=== PATIENT | female | born 1955 | race Caucasian/White ===

== ENCOUNTER 2019-06-14 02:08 | Emergency (ER) | payer SELFPAY ==
[2019-06-14] MEDS ORDERED: Ibuprofen TAB* 400 MG PO ONE (02:33)
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
[2019-06-14 05:16] LABS: ABS Basophils 0.1 10^3/ul (0-0.2); ABS Eosinophils 0.2 10^3/ul (0-0.6); ABS Lymphocytes 2.2 10^3/ul (1.0-4.8); ABS Monocytes 0.5 10^3/ul (0-0.8); ABS Neutrophils 4.7 10^3/ul (1.5-7.7); Eosinophil % 2.4 %; Hematocrit 41 % (35-47); Lymphocyte % 28.7 %; Mean Corpuscular HGB Conc 34 g/dL (31-36); Mean Corpuscular Hemoglobin 33 pg (27-31); Mean Corpuscular Volume 98 fL (80-97); Mean Platelet Volume 9.8 fL (7.4-10.4); Nucleated Red Blood Cells % 0.1; Platelet Count 238 10^3/uL (150-450); Red Cell Distribution Width 14 % (10-15); White Blood Count 7.6 10^3/uL (3.5-10.8)
[2019-06-14 05:35] LABS: Albumin 4.1 g/dL (3.2-5.2); Albumin/Globulin Ratio 1.8 (1-3); BUN/Creatinine Ratio 28.8 (8-20); Calcium 9.4 mg/dL (8.6-10.3); EGFR African American 124.6 (>60); EGFR Non-African American 102.9 (>60); Globulin 2.3 g/dL (2-4); Potassium 4.9 mmol/L (3.5-5.0); Total Bilirubin 0.3 mg/dL (0.2-1.0); Total Protein 6.4 g/dL (6.4-8.9)
[2019-06-14 08:41] VITALS: BP 151/77
== END 2019-06-14 08:00 | disposition home or self-care (01) ==
LOC: EDBD → ED 02:08
DX: S46.009A Unspecified injury of muscle(s) and tendon(s) of the rotator cuff of unspecified shoulder, initial encounter (principal); S16.1XXA Strain of muscle, fascia and tendon at neck level, initial encounter; T14.8XXA Other injury of unspecified body region, initial encounter; M54.2 Cervicalgia; W17.89XA Other fall from one level to another, initial encounter; Y92.9 Unspecified place or not applicable; F10.129 Alcohol abuse with intoxication, unspecified; Z88.0 Allergy status to penicillin; F17.210 Nicotine dependence, cigarettes, uncomplicated
CPT/HCPCS: 36415; 72125; 80053; 80320; 85025; 99283; A9270-GY; G0480

== ENCOUNTER 2019-09-13 11:25 | Emergency (ER) | payer MEDICAID ==
--- NOTE | 2019-09-13 13:02 | ED ---
Complex/Multi-Sys Presentation - HPI Summary HPI Summary: The patient is a 64 y/o F presenting to [facility] with chief complaint of pain in the RLE for the last year, back pain, tremors, and right-sided headaches over the last two weeks, all worsening over the last two days. She reports that the right ankle and into the knee has been painful and weak for the last year with recent worsening with cracking noises and tremors as well as intermittent swelling of the thigh. She has been experiencing tremors in the hands for the last few weeks as well worst on the right. She additionally has had headaches for the last two weeks located primarily posterior to the right eye described as trickling blood running down. The headaches are accompanied by photophobia , blurred vision, and flashing diamonds. She has not had these headaches before. She has used Ibuprofen to attempt to relieve the pain without relief. She endorses back pain and stiffness. Symptoms currently rated 10/10 in severity. She notes a lot of recent stress. PMHx: tubal ligation, dentures. Current smoker, occasional EtOH, no substance use. Medications reviewed. Allergies noted. - History Of Current Complaint Chief Complaint: EDExtremityLower Time Seen by Provider: 09/13/19 12:38 Hx Obtained From: Patient Onset/Duration: Still Present Severity Currently: Severe Severity Initially: Moderate Location: Pain At: - right ankle into knee, back Aggravating Factor(s): lights (headache) Alleviating Factor(s): nothing (Ibuprofen to no relief) Associated Signs And Symptoms: Positive: Headache, Edema - right thigh, Back Pain, Other - tremors in RLE and RUE, blurred vision, photophobia, flashing lights - Allergies/Home Medications Allergies/Adverse Reactions: Allergies Allergy/AdvReac Type Severity Reaction Status Date / Time codeine Allergy Anxiety Verified 06/14/19 02:12 Penicillins Allergy Rash Verified 06/14/19 02:12 PMH/Surg Hx/FS Hx/Imm Hx Endocrine/Hematology History: Denies: Hx Diabetes Cardiovascular History: Denies: Hx Deep Vein Thrombosis, Hx Hypotension Sensory History: Denies: Hx Contacts or Glasses Opthamlomology History: Denies: Hx Contacts or Glasses - Surgical History Surgical History: Yes Surgery Procedure, Year, and Place: tubal ligation, dentures Infectious Disease History: No Infectious Disease History: Denies: Traveled Outside the [place] in Last 30 Days - Family History Known Family History: Negative: Renal Disease, Respiratory Disease - Social History Alcohol Use: Occasionally Alcohol Amount: 3-4 times a wk 2-3 drinks a day Hx Substance Use: No Substance Use Type: Reports: None Hx Tobacco Use: Yes Smoking Status (MU): Current Every Day Smoker Review of Systems Positive: Photophobia, Blurred Vision - right eye, Other - flashing light in right eye Positive: Arthralgia - right ankle to knee, Myalgia - back, Edema - right thigh occasionally Neurological: Other - body tremors worst in RUE and RLE Positive: Headache - posterior to right eye, Weakness - RLE worst at ankle All Other Systems Reviewed And Are Negative: Yes Physical Exam - Summary Physical Exam Summary: Constitutional: Well-developed, Well-nourished, Alert. (-) Distressed Skin: Warm, Dry HENT: Normocephalic; Atraumatic Eyes: Conjunctiva normal Neck: Musculoskeletal ROM normal neck. (-) JVD, (-) Stridor, (-) Tracheal deviation Cardio: Rhythm regular, rate normal, Heart sounds normal; Intact distal pulses; Radial pulses are 2+ and symmetric. (-) Murmur Pulmonary/Chest wall: Effort normal. (-) Respiratory distress, (-) Wheezes, (-) Rales Abd: Soft, (-) tenderness, (-) Distension, (-) Guarding, (-) Rebound Musculoskeletal: (-) Edema, Patient refuses to bend right leg when walking Lymph: (-) Cervical adenopathy Neuro: Alert, Oriented x3, Coarse tremors of RUE and RLE Psych: Mood and affect Normal Triage Information Reviewed: Yes Vital Signs On Initial Exam: Initial Vitals Temp Pulse Resp BP Pulse Ox 98.3 F 87 16 134/81 96 09/13/19 11:27 09/13/19 11:27 09/13/19 11:27 09/13/19 11:27 09/13/19 11:27 Vital Signs Reviewed: Yes - Devante Coma Scale Best Eye Response: 4 - Spontaneous Best Motor Response: 6 - Obeys Commands Best Verbal Response: 5 - Oriented Coma Scale Total: 15 Procedures - Sedation Patient Received Moderate/Deep Sedation with Procedure: No Diagnostics - Vital Signs Vital Signs Temp Pulse Resp BP Pulse Ox 09/13/19 11:27 98.3 F 87 16 134/81 96 - Laboratory Result Diagrams: 09/13/19 13:34 09/13/19 13:34 Lab Statement: Any lab studies that have been ordered have been reviewed, and results considered in the medical decision making process. - CT Brain CT CT Interpretation Completed By: Radiologist Summary of CT Findings: Impression: No acute intracranial pathology. ED physician has reviewed this report. Re-Evaluation - Re-Evaluation First Eval Re-Evaluation Time: 14:35 Comment: We discussed results and plan for discharge. Complex Multi-Symp Course/Dx Course Of Treatment: Patient is here with one year of symptoms of varying etiology. Patient's had tremor in her right upper extremity gets worse with stress. Patient's had periodic headaches over the past couple of weeks. Patient also has pain in her knee and ankle. Patient is here today as she just got insurance again. Patient had a overall benign exam not concerned for any emergent pathology. However, given patient's lack of care and year-long symptomology, a CT brain was performed to evaluate for obvious mass which was negative. Patient had basic blood tests performed which were grossly unremarkable. Patient will follow up with her primary care doctor next week where she is going to establish care - Diagnoses Provider Diagnoses: Headache, Coarse tremors, Right knee pain Discharge ED - Sign-Out/Discharge Documenting (check all that apply): Patient Departure - Patient will be discharged home. - Discharge Plan Condition: Stable Disposition: HOME Prescriptions: Butalb/Acetamin/Caff TAB* [Fioricet TAB*] 1 tab PO Q8HR PRN #8 tab MDD 3 tablets PRN Reason: Headache Patient Education Materials: Acute Headache (DC), Knee Pain (ED), Tremors (ED) Referrals: [facility] [Outside] - 7 Days Albaro Kaba MD [Medical Doctor] - 3 Days Additional Instructions: Follow up with your primary care provider next week. Also follow up with neurology. Take headache medication as prescribed. Return to the emergency department for any new or worsening symptoms. - Billing Disposition and Condition Condition: STABLE Disposition: Home - Attestation Statements Document Initiated by Scribe: Yes Documenting Scribe: Madonna Concepcion Provider For Whom Lyubov is Documenting (Include Credential): MD Pascual Malaveibcaesar Attestation: Madonna Ray scribed for Dr. Barry De Leon MD on 09/13/19 at 1449. Scribe Documentation Reviewed: Yes Provider Attestation: The documentation as recorded by the pascualibe, Madonna Concepcion accurately reflects the service I personally performed and the decisions made by me, Dr. Barry De Leon MD Status of Scribe Document: Viewed
[2019-09-13] MEDS ORDERED: Butalb/Acetamin/Caff TAB* 1 TAB PO ONE (13:37)
[2019-09-13 13:44] LABS: ABS Basophils 0.1 10^3/ul (0-0.2); ABS Eosinophils 0.1 10^3/ul (0-0.6); ABS Lymphocytes 1.9 10^3/ul (1.0-4.8); ABS Monocytes 0.5 10^3/ul (0-0.8); ABS Neutrophils 5.9 10^3/ul (1.5-7.7); Eosinophil % 1.1 %; Hematocrit 42 % (35-47); Hemoglobin 14.4 g/dL (12.0-16.0); Mean Corpuscular HGB Conc 34 g/dL (31-36); Mean Corpuscular Hemoglobin 34 pg (27-31); Mean Corpuscular Volume 97 fL (80-97); Mean Platelet Volume 9.5 fL (7.4-10.4); Nucleated Red Blood Cells % 0.1; Platelet Count 226 10^3/uL (150-450); Red Blood Count 4.31 10^6 /uL (3.70-4.87); Red Cell Distribution Width 14 % (10-15); White Blood Count 8.5 10^3/uL (3.5-10.8)
[2019-09-13 14:00] LABS: Albumin 4.5 g/dL (3.2-5.2); Albumin/Globulin Ratio 1.7 (1-3); BUN/Creatinine Ratio 25.8 (8-20); Calcium 9.3 mg/dL (8.6-10.3); EGFR African American 109.1 (>60); EGFR Non-African American 90.2 (>60); Globulin 2.6 g/dL (2-4); Potassium 4.8 mmol/L (3.5-5.0); Total Bilirubin 0.7 mg/dL (0.2-1.0); Total Protein 7.1 g/dL (6.4-8.9)
[2019-09-13 14:29] LABS: TSH (Thyroid Stimulating Horm) 1.52 mcIU/mL (0.34-5.60)
[2019-09-13 15:21] VITALS: BP 150/70
== END 2019-09-13 15:10 | disposition home or self-care (01) ==
LOC: ED 11:25
DX: R51 Headache (principal); R25.1 Tremor, unspecified; M25.561 Pain in right knee; M54.9 Dorsalgia, unspecified; H53.8 Other visual disturbances; H53.149 Visual discomfort, unspecified; F17.210 Nicotine dependence, cigarettes, uncomplicated
CPT/HCPCS: 36415; 70450; 80053; 84443; 85025; 99282; A9270-GY

== ENCOUNTER 2021-06-17 05:38 | Observation (INO) ==
[2021-06-17] MEDS ORDERED: ceFAZolin 1 GM ADVAN 1 GM in NS 0.9% 50 ML 50 ML IVPB ONE (06:36)
[2021-06-17 07:06] LABS: ABS Basophils 0.1 10^3/ul (0-0.2); ABS Eosinophils 0.3 10^3/ul (0-0.6); ABS Lymphocytes 2.4 10^3/ul (1.0-4.8); ABS Monocytes 1.1 10^3/ul (0-0.8); ABS Neutrophils 5.7 10^3/ul (1.5-7.7); Hematocrit 39 % (35-47); Hemoglobin 13.6 g/dL (12.0-16.0); Lymphocyte % 24.9 %; Mean Corpuscular HGB Conc 35 g/dL (31-36); Mean Corpuscular Hemoglobin 35 pg (27-31); Mean Corpuscular Volume 99 fL (80-97); Mean Platelet Volume 8.8 fL (7.4-10.4); Platelet Count 286 10^3/uL (150-450); Red Cell Distribution Width 14 % (10-15); White Blood Count 9.6 10^3/uL (3.5-10.8)
[2021-06-17 07:24] LABS: Albumin 3.9 g/dL (3.2-5.2); Albumin/Globulin Ratio 1.5 (1-3); C Reactive Protein 1.39 mg/L (<8.01); Globulin 2.6 g/dL (2-4); Potassium 3.4 mmol/L (3.5-5.0); Total Bilirubin 0.4 mg/dL (0.2-1.0); Total Protein 6.5 g/dL (6.4-8.9)
[2021-06-17 09:52] LABS: Erythrocyte Sed Rate 3 mm/Hr (0-29)
[2021-06-17] MEDS ORDERED: Lidocaine 1% VIAL 10 MG/ML VIAL INJ ONE (10:12)
[2021-06-17] MEDS ORDERED: cefTRIAXone 1 gm/50 mL NS BAG 1 GM/50 ML BAG IV ONE ×2 (12:06→12:30)
[2021-06-17 13:05] LABS: Rapid COVID-19 Molecular Undetected (Undetected)
[2021-06-17] MEDS: HYDROcodone/ACETAMIN 5/325 mg TAB PO PRN ×2 (13:05→19:37)
[2021-06-17] MEDS: metroNIDAZOLE IV 500 MG/100ML 500 MG/100 ML BAG IVPB SCH ×2 (14:08→22:13)
[2021-06-17] MEDS ORDERED: Vancomycin 1,000 MG in NS 0.9% 250 ml 250 ML IVPB ONE (17:00)
[2021-06-17] MEDS ORDERED: Vancomycin per Pharmacy 1 EA NOTE FOLLOW UP PRN (18:15)
[2021-06-18] MEDS: metroNIDAZOLE IV 500 MG/100ML 500 MG/100 ML BAG IVPB SCH (05:15)
[2021-06-18] MEDS: Vancomycin 1000 MG in NS 0.9% 250 ML IVPB SCH ×2 (06:46→07:31)
[2021-06-18] MEDS: HYDROcodone/ACETAMIN 5/325 mg TAB PO PRN (07:31)
[2021-06-18 08:48] LABS: ABS Basophils 0.1 10^3/ul (0-0.2); ABS Eosinophils 0.2 10^3/ul (0-0.6); ABS Lymphocytes 1.8 10^3/ul (1.0-4.8); ABS Monocytes 0.7 10^3/ul (0-0.8); ABS Neutrophils 4.7 10^3/ul (1.5-7.7); Eosinophil % 3.1 %; Hematocrit 36 % (35-47); Hemoglobin 12.3 g/dL (12.0-16.0); Lymphocyte % 24.4 %; Mean Corpuscular HGB Conc 34 g/dL (31-36); Mean Corpuscular Hemoglobin 34 pg (27-31); Mean Corpuscular Volume 99 fL (80-97); Platelet Count 236 10^3/uL (150-450); Red Blood Count 3.65 10^6 /uL (3.70-4.87); Red Cell Distribution Width 13 % (10-15); White Blood Count 7.6 10^3/uL (3.5-10.8)
[2021-06-18 09:04] LABS: C Reactive Protein 3.08 mg/L (<8.01); Calcium 8.4 mg/dL (8.6-10.3); Potassium 3.6 mmol/L (3.5-5.0)
[2021-06-18] MEDS ORDERED: cefTRIAXone 1 gm/50 mL NS BAG 1 GM/50 ML BAG IVPB SCH (12:00)
[2021-06-18 12:17] VITALS: BP 132/52
[2021-06-19] MEDS ORDERED: Vancomycin Trough Check NOTE FOLLOW UP ONE (05:30)
== END 2021-06-18 13:20 | disposition home or self-care (01) ==
LOC: SSU 05:38 → ED 05:38 → SSU 12:42
PROVIDERS: ADMIT Internal Medicine; ATTEND Internal Medicine

== ENCOUNTER 2021-11-15 05:39 | Inpatient (IN) ==
[2021-11-15] MEDS ORDERED: Lactated Ringers 1000 ml BAG 1,000 ML IV SCH (06:00)
[2021-11-15] MEDS ORDERED: Buffered Lidocaine 1% SYRIN 1 ml INTRADERM ONE (06:00)
[2021-11-15] MEDS ORDERED: Vancomycin 1,000 MG - ED ONCE IVPB ONE (06:00)
[2021-11-15] MEDS ORDERED: ceFAZolin VIAL VIAL ONE ×3 (06:34→11:19)
[2021-11-15] MEDS ORDERED: Bupivacaine 0.25% EPI 200,000 30 ML SDV ONE (06:35)
[2021-11-15] MEDS ORDERED: Artificial Tear OPHTH.OINT 3.5 GM ONE (06:53)
[2021-11-15] MEDS ORDERED: Propofol 10 MG/ML 20 ML BTL ONE ×2 (06:54→10:38)
[2021-11-15] MEDS ORDERED: Phenylephrine IV 10 MG/ML 1 ml VIAL ONE (06:55)
[2021-11-15] MEDS ORDERED: fentaNYL 250 mcg/5 ml 50 MCG/ML 5 ml VIAL (250 MCG) ONE (06:55)
[2021-11-15] MEDS ORDERED: Lidocaine 2% PF 5 ML VIAL ONE (06:55)
[2021-11-15] MEDS ORDERED: HYDROmorphone 0.5 MG/0.5 ML SYRINGE ONE ×2 (06:55→12:46)
[2021-11-15] MEDS ORDERED: Remifentanil 2 MG VIAL ONE ×2 (06:55→10:28)
[2021-11-15] MEDS ORDERED: Succinylcholine 200 mg VIAL 20 mg/ml 10 ml VIAL (200 mg) ONE (07:06)
[2021-11-15] MEDS ORDERED: Rocuronium 50 mg VIAL 10 mg/ml 5 ml VIAL (50 mg) ONE (07:06)
[2021-11-15] MEDS ORDERED: Midazolam 2 mg/2 ml VIAL 1 mg/ml 2 ml VIAL (2 mg) ONE (07:42)
[2021-11-15] MEDS ORDERED: Prochlorperazine 5 mg/ml 2 ml VIAL (10 mg) IV PRN (07:48)
[2021-11-15] MEDS ORDERED: Naloxone 0.4 mg VIAL 0.4 mg/ml 1 ml VIAL IV PRN (07:48)
[2021-11-15] MEDS ORDERED: diPHENhydraMINE IV 50 MG/ML 1 ml VIAL (BENADRYL) IV PRN (07:48)
[2021-11-15] MEDS ORDERED: Ketamine HCL 50 mg/ml 10 ml VIAL (500 MG) ONE (08:33)
[2021-11-15] MEDS ORDERED: Glycopyrrolate IV 0.2 MG/ML 1 ML VIAL ONE (08:33)
[2021-11-15] MEDS ORDERED: Dexamethasone IV 4 MG/ML VIAL 1 ml VIAL ONE (08:42)
[2021-11-15] MEDS ORDERED: Ondansetron 4 mg VIAL 2 MG/ML 2 ml VIAL ONE ×2 (08:42→09:28)
[2021-11-15] MEDS ORDERED: Ondansetron 4 mg VIAL 2 MG/ML 2 ml VIAL IV PRN (12:29)
[2021-11-15] MEDS: HYDROmorphone 1 MG/1 ML SYRINGE IV PRN ×5 (13:30→13:50)
[2021-11-15] MEDS ORDERED: HYDROmorphone 1 MG/1 ML SYRINGE ONE (13:32)
[2021-11-15] MEDS ORDERED: [UNRECOGNIZED DRUG - OTHER] PO SCH (21:00)
[2021-11-17 21:29] LABS: ABS Lymphocytes 1.1 10^3/ul (1.0-4.8); ABS Monocytes 1.1 10^3/ul (0-0.8); ABS Neutrophils 8.2 10^3/ul (1.5-7.7); Eosinophil % 0.5 %; Hematocrit 33 % (35-47); Hemoglobin 11.2 g/dL (12.0-16.0); Lymphocyte % 10.8 %; Mean Corpuscular HGB Conc 34 g/dL (31-36); Mean Corpuscular Hemoglobin 34 pg (27-31); Mean Corpuscular Volume 100 fL (80-97); Mean Platelet Volume 9.1 fL (7.4-10.4); Platelet Count 182 10^3/uL (150-450); Red Blood Count 3.34 10^6 /uL (3.70-4.87); Red Cell Distribution Width 14 % (10-15); White Blood Count 10.6 10^3/uL (3.5-10.8)
[2021-11-17 21:59] LABS: C Reactive Protein 155.57 mg/L (<8.01); Calcium 8.9 mg/dL (8.6-10.3); Potassium 3.7 mmol/L (3.5-5.0); eGFR CKD-EPI 57.3 (>60)
[2021-11-18] MEDS: Morphine ORAL.SOLN 10 mg 2 mg/ml UDC 5 ml (10 mg) PO PRN (14:43)
[2021-11-19] MEDS: Morphine ORAL.SOLN 10 mg 2 mg/ml UDC 5 ml (10 mg) PO PRN ×3 (00:51→16:42)
[2021-11-19 07:14] LABS: ABS Eosinophils 0.2 10^3/ul (0-0.6); ABS Lymphocytes 1.5 10^3/ul (1.0-4.8); ABS Monocytes 0.8 10^3/ul (0-0.8); ABS Neutrophils 5.8 10^3/ul (1.5-7.7); Eosinophil % 2.1 %; Hematocrit 30 % (35-47); Hemoglobin 10.4 g/dL (12.0-16.0); Lymphocyte % 18.2 %; Mean Corpuscular HGB Conc 35 g/dL (31-36); Mean Corpuscular Hemoglobin 34 pg (27-31); Mean Corpuscular Volume 99 fL (80-97); Mean Platelet Volume 9.1 fL (7.4-10.4); Platelet Count 208 10^3/uL (150-450); Red Blood Count 3.04 10^6 /uL (3.70-4.87); Red Cell Distribution Width 14 % (10-15); White Blood Count 8.3 10^3/uL (3.5-10.8)
[2021-11-19 07:50] LABS: Potassium 3.5 mmol/L (3.5-5.0); eGFR CKD-EPI 100.6 (>60)
[2021-11-19 14:43] LABS: Albumin 2.9 g/dL (3.2-5.2); Albumin/Globulin Ratio 1.3 (1-3); C Reactive Protein 154.19 mg/L (<8.01); Globulin 2.2 g/dL (2-4); Total Bilirubin 0.7 mg/dL (0.2-1.0); Total Protein 5.1 g/dL (6.4-8.9)
[2021-11-19] MEDS: Heparin 5000 UNITS/ML 1 mL VIAL SUBCUT SCH (21:33)
[2021-11-19] MEDS: Senna TAB 8.6 mg TAB PO PRN (21:33)
[2021-11-20] MEDS: Morphine ORAL.SOLN 10 mg 2 mg/ml UDC 5 ml (10 mg) PO PRN ×5 (00:22→22:42)
[2021-11-20 05:40] LABS: ABS Eosinophils 0.3 10^3/ul (0-0.6); ABS Lymphocytes 1.4 10^3/ul (1.0-4.8); ABS Monocytes 0.9 10^3/ul (0-0.8); ABS Neutrophils 4.6 10^3/ul (1.5-7.7); Eosinophil % 3.7 %; Hematocrit 31 % (35-47); Hemoglobin 10.3 g/dL (12.0-16.0); Lymphocyte % 19.3 %; Mean Corpuscular HGB Conc 34 g/dL (31-36); Mean Corpuscular Hemoglobin 34 pg (27-31); Mean Corpuscular Volume 99 fL (80-97); Mean Platelet Volume 8.9 fL (7.4-10.4); Platelet Count 231 10^3/uL (150-450); Red Blood Count 3.07 10^6 /uL (3.70-4.87); Red Cell Distribution Width 14 % (10-15); White Blood Count 7.1 10^3/uL (3.5-10.8)
[2021-11-20 06:13] LABS: Potassium 3.6 mmol/L (3.5-5.0); eGFR CKD-EPI 99.7 (>60)
[2021-11-20] MEDS: Heparin 5000 UNITS/ML 1 mL VIAL SUBCUT SCH ×3 (06:43→20:21)
[2021-11-20] MEDS ORDERED: NS 0.9% 1000 ml BAG 1,000 ML IV ONE (08:42)
[2021-11-20 17:31] LABS: Urine Appearance Cloudy; Urine Bilirubin Negative (Negative); Urine Blood Negative (Negative); Urine Color Amber; Urine Glucose Negative (Negative); Urine Ketones Trace (Negative); Urine Nitrite Negative (Negative); Urine Protein Negative (Negative); Urine Specific Gravity 1.017 (1.002-1.030); Urine Urobilinogen Negative (Negative)
[2021-11-21] MEDS: Morphine ORAL.SOLN 10 mg 2 mg/ml UDC 5 ml (10 mg) PO PRN ×4 (03:36→20:44)
[2021-11-21] MEDS: Heparin 5000 UNITS/ML 1 mL VIAL SUBCUT SCH ×3 (06:13→20:44)
[2021-11-21] MEDS: Polyethylene Glycol 3350 17 GM PACKET PO SCH (10:21)
[2021-11-22] MEDS: Morphine ORAL.SOLN 10 mg 2 mg/ml UDC 5 ml (10 mg) PO PRN ×3 (03:44→18:57)
[2021-11-22] MEDS: Heparin 5000 UNITS/ML 1 mL VIAL SUBCUT SCH ×3 (05:13→22:11)
[2021-11-22] MEDS: Polyethylene Glycol 3350 17 GM PACKET PO SCH (09:45)
[2021-11-22] MEDS: Psyllium PAK PO SCH (09:46)
[2021-11-23] MEDS: Morphine ORAL.SOLN 10 mg 2 mg/ml UDC 5 ml (10 mg) PO PRN ×4 (00:25→22:15)
[2021-11-23] MEDS: Heparin 5000 UNITS/ML 1 mL VIAL SUBCUT SCH ×3 (05:53→21:53)
[2021-11-23] MEDS: Magnesium Hydroxide LIQ 30 ML UDC PO PRN ×2 (07:59→21:53)
[2021-11-23] MEDS: Senna TAB 8.6 mg TAB PO PRN (08:01)
[2021-11-23] MEDS: Polyethylene Glycol 3350 17 GM PACKET PO SCH (08:01)
[2021-11-23] MEDS: Psyllium PAK PO SCH (08:02)
[2021-11-24] MEDS: Heparin 5000 UNITS/ML 1 mL VIAL SUBCUT SCH ×2 (05:22→13:08)
[2021-11-24] MEDS: Morphine ORAL.SOLN 10 mg 2 mg/ml UDC 5 ml (10 mg) PO PRN ×2 (09:31→13:29)
[2021-11-24] MEDS: Psyllium PAK PO SCH (09:31)
[2021-11-24] MEDS: Polyethylene Glycol 3350 17 GM PACKET PO SCH (09:31)
[2021-11-24 11:30] VITALS: BP 126/35
== END 2021-11-24 16:30 | disposition home health service (06) | DRG 472 ==
LOC: OR 05:39 → SSU 12:29
PROVIDERS: ADMIT Neurological Surgery; ATTEND Neurological Surgery

== ENCOUNTER 2021-11-30 15:32 | Inpatient (IN) ==
[2021-11-30 17:13] LABS: ABS Basophils 0.1 10^3/ul (0-0.2); ABS Eosinophils 0.2 10^3/ul (0-0.6); ABS Lymphocytes 1.5 10^3/ul (1.0-4.8); ABS Monocytes 1.2 10^3/ul (0-0.8); ABS Neutrophils 9.7 10^3/ul (1.5-7.7); Eosinophil % 1.7 %; Hematocrit 32 % (35-47); Hemoglobin 10.5 g/dL (12.0-16.0); Lymphocyte % 11.7 %; Mean Corpuscular HGB Conc 33 g/dL (31-36); Mean Corpuscular Hemoglobin 32 pg (27-31); Mean Corpuscular Volume 98 fL (80-97); Platelet Count 495 10^3/uL (150-450); Red Blood Count 3.25 10^6 /uL (3.70-4.87); Red Cell Distribution Width 14 % (10-15); White Blood Count 12.7 10^3/uL (3.5-10.8)
[2021-11-30] MEDS ORDERED: Clindamycin 900 MG/D5W BAG 900 MG/50 ML BAG IVPB ONE (17:35)
[2021-11-30] MEDS ORDERED: Vancomycin 1,500 MG in NS 0.9% 250 ml 250 ML IVPB ONE (17:36)
[2021-11-30] MEDS ORDERED: Cefepime 1 GM in Dextrose 1 GM/50 ML BAG IV SCH (18:00)
[2021-11-30 18:03] LABS: Albumin 3.5 g/dL (3.2-5.2); Albumin/Globulin Ratio 1.1 (1-3); C Reactive Protein 130.42 mg/L (<8.01); Globulin 3.1 g/dL (2-4); Potassium 4.6 mmol/L (3.5-5.0); Total Bilirubin 0.6 mg/dL (0.2-1.0); Total Protein 6.6 g/dL (6.4-8.9); eGFR CKD-EPI 26.1 (>60)
[2021-11-30 18:16] LABS: INR 1.23 (0.86-1.15)
[2021-11-30] MEDS ORDERED: Morphine 4 MG/ML VIAL (1 ml) IV PRN (20:17)
[2021-11-30] MEDS ORDERED: Vancomycin 1,000 MG - ED ONCE IVPB ONE (21:00)
[2021-11-30] MEDS ORDERED: Vancomycin per Pharmacy 1 EA NOTE FOLLOW UP SCH (21:00)
[2021-11-30] MEDS ORDERED: Lactated Ringers 1000 ml BAG 1,000 ML IV SCH (23:45)
[2021-12-01] MEDS: Acetaminophen IV 1 GM/100ML 100 ML IV SCH ×4 (04:15→23:11)
[2021-12-01 06:01] LABS: ABS Eosinophils 0.2 10^3/ul (0-0.6); ABS Lymphocytes 1.3 10^3/ul (1.0-4.8); ABS Monocytes 1.1 10^3/ul (0-0.8); ABS Neutrophils 7.1 10^3/ul (1.5-7.7); Eosinophil % 1.8 %; Hematocrit 28 % (35-47); Hemoglobin 9.6 g/dL (12.0-16.0); Lymphocyte % 13.1 %; Mean Corpuscular HGB Conc 34 g/dL (31-36); Mean Corpuscular Hemoglobin 33 pg (27-31); Mean Corpuscular Volume 97 fL (80-97); Mean Platelet Volume 9.2 fL (7.4-10.4); Platelet Count 458 10^3/uL (150-450); Red Blood Count 2.92 10^6 /uL (3.70-4.87); Red Cell Distribution Width 14 % (10-15); White Blood Count 9.6 10^3/uL (3.5-10.8)
[2021-12-01 06:21] LABS: Urine Appearance Cloudy; Urine Bilirubin Negative (Negative); Urine Blood 2+ (Negative); Urine Color Yellow; Urine Glucose Negative (Negative); Urine Ketones Trace (Negative); Urine Nitrite Negative (Negative); Urine Protein Negative (Negative); Urine Specific Gravity 1.014 (1.002-1.030); Urine Urobilinogen Negative (Negative)
[2021-12-01 06:39] LABS: Calcium 9.3 mg/dL (8.6-10.3); Potassium 4.4 mmol/L (3.5-5.0); eGFR CKD-EPI 40.1 (>60)
[2021-12-01 06:50] LABS: Urine Bacteria Absent (Absent); Urine Red Blood Cell Trace(0-2/hpf) (Absent); Urine Squamous Epithelial Cell Present (Absent); Urine White Blood Cell 1+(6-10/hpf) (Absent)
[2021-12-01 07:03] LABS: Folate 11.57 ng/mL (5.90-24.80)
[2021-12-01] MEDS ORDERED: Buffered Lidocaine 1% SYRIN 1 ml INTRADERM ONE (09:57)
[2021-12-01] MEDS ORDERED: Lactated Ringers 1000 ml BAG 1,000 ML IV SCH (10:00)
[2021-12-01 10:48] LABS: Vancomycin Random 14.7 mcg/mL
[2021-12-01] MEDS ORDERED: Vancomycin Random Level NOTE FOLLOW UP ONE (11:00)
[2021-12-01] MEDS ORDERED: Lidocaine 1.5% EPI 1:200,000 30 ML SDV ONE (11:52)
[2021-12-01] MEDS ORDERED: Thrombin 5,000 UNITS 1 APPLIC KIT - topical use - TOPICAL ONE (11:52)
[2021-12-01] MEDS ORDERED: ceFAZolin VIAL VIAL ONE (12:09)
[2021-12-01] MEDS ORDERED: Vancomycin 1,000 MG - ED ONCE IVPB ONE (13:00)
[2021-12-01] MEDS ORDERED: Lidocaine 2% PF 5 ML VIAL ONE (13:15)
[2021-12-01] MEDS ORDERED: Propofol 10 MG/ML 20 ML BTL ONE (13:15)
[2021-12-01] MEDS ORDERED: Rocuronium 50 mg VIAL 10 mg/ml 5 ml VIAL (50 mg) ONE ×2 (13:15→14:44)
[2021-12-01] MEDS ORDERED: Phenylephrine 40 mcg/mL 10mL (400mcg) SYRINGE ONE (13:51)
[2021-12-01] MEDS ORDERED: fentaNYL 100 mcg/2 ml 50 MCG/ML VIAL ONE ×4 (14:06→16:46)
[2021-12-01] MEDS ORDERED: Acetaminophen IV 1 GM/100ML 100 ML IV ONE (14:24)
[2021-12-01] MEDS ORDERED: EPHEDrine (Pressors) 50 MG/ML VIAL ONE (14:41)
[2021-12-01] MEDS ORDERED: Vancomycin 1,000 MG VIAL ONE (14:44)
[2021-12-01] MEDS ORDERED: Phenylephrine IV 10 MG/ML 1 ml VIAL ONE (14:50)
[2021-12-01] MEDS ORDERED: fentaNYL 100 mcg/2 ml 50 MCG/ML VIAL IV PRN (16:08)
[2021-12-01] MEDS ORDERED: Naloxone 0.4 mg VIAL 0.4 mg/ml 1 ml VIAL IV PRN (16:08)
[2021-12-01] MEDS ORDERED: Ondansetron 4 mg VIAL 2 MG/ML 2 ml VIAL IV PRN ×2 (16:08→17:35)
[2021-12-01] MEDS ORDERED: Levalbuterol 0.63MG/3ML NEB UNIT OF USE INH PRN (16:08)
[2021-12-01] MEDS ORDERED: Ondansetron 4 mg VIAL 2 MG/ML 2 ml VIAL ONE (16:46)
[2021-12-01] MEDS ORDERED: Vancomycin 1000 MG in NS 0.9% 250 ML IVPB ONE (18:00)
[2021-12-01] MEDS ORDERED: cefTRIAXone 1 gm/50 mL NS BAG 1 GM/50 ML BAG IVPB SCH (21:00)
[2021-12-02] MEDS: Acetaminophen IV 1 GM/100ML 100 ML IV SCH ×3 (04:25→16:58)
[2021-12-02 05:49] LABS: ABS Eosinophils 0.2 10^3/ul (0-0.6); ABS Lymphocytes 1.3 10^3/ul (1.0-4.8); ABS Neutrophils 6.9 10^3/ul (1.5-7.7); Eosinophil % 1.8 %; Hematocrit 24 % (35-47); Hemoglobin 8.1 g/dL (12.0-16.0); Lymphocyte % 13.6 %; Mean Corpuscular HGB Conc 34 g/dL (31-36); Mean Corpuscular Hemoglobin 33 pg (27-31); Mean Corpuscular Volume 97 fL (80-97); Platelet Count 461 10^3/uL (150-450); Red Cell Distribution Width 13 % (10-15); White Blood Count 9.4 10^3/uL (3.5-10.8)
[2021-12-02] MEDS ORDERED: Vancomycin Random Level NOTE FOLLOW UP ONE (06:00)
[2021-12-02 06:14] LABS: Calcium 8.9 mg/dL (8.6-10.3); Magnesium 1.5 mg/dL (1.9-2.7); Potassium 4.4 mmol/L (3.5-5.0); Vancomycin Random 10.2 mcg/mL; eGFR CKD-EPI 74.5 (>60)
[2021-12-02] MEDS ORDERED: Senna TAB 8.6 mg TAB PO PRN (06:39)
[2021-12-02] MEDS ORDERED: Magnesium Sulfate 2 gm BAG 2 GM/50 ML BAG IVPB ONE (06:45)
[2021-12-02] MEDS: Magnesium Hydroxide LIQ 30 ML UDC PO PRN ×2 (08:33→16:08)
[2021-12-02] MEDS: Vancomycin 750 MG in NS 0.9% 250 ML IVPB SCH (11:42)
[2021-12-02] MEDS ORDERED: cefTRIAXone 1 gm/50 mL D5W 1 GM/50 ML BAG IV SCH (21:00)
[2021-12-02] MEDS ORDERED: Nicotine Lozenge mini 2 MG LOZNG.MINI MT PRN (21:03)
[2021-12-03] MEDS: Vancomycin 750 MG in NS 0.9% 250 ML IVPB SCH ×3 (00:45→23:03)
[2021-12-03] MEDS: Acetaminophen IV 1 GM/100ML 100 ML IV SCH ×5 (01:15→21:59)
[2021-12-03 05:42] LABS: ABS Eosinophils 0.1 10^3/ul (0-0.6); ABS Lymphocytes 1.2 10^3/ul (1.0-4.8); ABS Monocytes 0.9 10^3/ul (0-0.8); ABS Neutrophils 9.3 10^3/ul (1.5-7.7); Eosinophil % 0.9 %; Hematocrit 26 % (35-47); Hemoglobin 8.7 g/dL (12.0-16.0); Lymphocyte % 10.4 %; Mean Corpuscular HGB Conc 34 g/dL (31-36); Mean Corpuscular Hemoglobin 33 pg (27-31); Mean Corpuscular Volume 96 fL (80-97); Mean Platelet Volume 8.9 fL (7.4-10.4); Platelet Count 496 10^3/uL (150-450); Red Blood Count 2.69 10^6 /uL (3.70-4.87); Red Cell Distribution Width 13 % (10-15); White Blood Count 11.5 10^3/uL (3.5-10.8)
[2021-12-03 06:20] LABS: Calcium 9.1 mg/dL (8.6-10.3); Potassium 4.3 mmol/L (3.5-5.0); eGFR CKD-EPI 95.7 (>60)
[2021-12-03] MEDS: Nicotine PATCH 14 MG/24 HR PATCH TRANSDERM SCH (09:46)
[2021-12-03] MEDS ORDERED: Lorazepam PYXIS KEY PRN (15:27)
[2021-12-03] MEDS: Enoxaparin 40 MG/0.4 ML SYR SUBCUT SCH (17:31)
[2021-12-04] MEDS: LORazepam 2 mg VIAL 1 ml IV PUSH PRN ×2 (03:36→09:02)
[2021-12-04] MEDS: Acetaminophen IV 1 GM/100ML 100 ML IV SCH ×5 (03:41→23:15)
[2021-12-04 05:43] LABS: ABS Basophils 0.1 10^3/ul (0-0.2); ABS Eosinophils 0.2 10^3/ul (0-0.6); ABS Neutrophils 7.2 10^3/ul (1.5-7.7); Eosinophil % 1.9 %; Hematocrit 27 % (35-47); Hemoglobin 9.3 g/dL (12.0-16.0); Mean Corpuscular HGB Conc 34 g/dL (31-36); Mean Corpuscular Hemoglobin 33 pg (27-31); Mean Corpuscular Volume 96 fL (80-97); Mean Platelet Volume 9.1 fL (7.4-10.4); Platelet Count 584 10^3/uL (150-450); Red Blood Count 2.83 10^6 /uL (3.70-4.87); Red Cell Distribution Width 14 % (10-15); White Blood Count 10.5 10^3/uL (3.5-10.8)
[2021-12-04 06:11] LABS: Calcium 9.5 mg/dL (8.6-10.3); Magnesium 1.6 mg/dL (1.9-2.7); Potassium 3.6 mmol/L (3.5-5.0); eGFR CKD-EPI 96.7 (>60)
[2021-12-04] MEDS ORDERED: Magnesium Sulf 4 GM/100 ML IV 4,000 MG/100 ML BAG IVPB ONE (08:10)
[2021-12-04] MEDS: Nicotine PATCH 14 MG/24 HR PATCH TRANSDERM SCH (08:46)
[2021-12-04] MEDS ORDERED: Vancomycin Trough Check NOTE FOLLOW UP ONE (10:30)
[2021-12-04] MEDS: Vancomycin 750 MG in NS 0.9% 250 ML IVPB SCH ×2 (11:28→23:15)
[2021-12-04] MEDS: Enoxaparin 40 MG/0.4 ML SYR SUBCUT SCH (17:25)
[2021-12-05] MEDS: LORazepam 2 mg VIAL 1 ml IV PUSH PRN (01:10)
[2021-12-05] MEDS: Acetaminophen IV 1 GM/100ML 100 ML IV SCH ×4 (03:45→22:18)
[2021-12-05 08:05] LABS: Calcium 8.9 mg/dL (8.6-10.3); Magnesium 1.8 mg/dL (1.9-2.7); Potassium 3.4 mmol/L (3.5-5.0); eGFR CKD-EPI 96.3 (>60)
[2021-12-05] MEDS: Nicotine PATCH 14 MG/24 HR PATCH TRANSDERM SCH (08:21)
[2021-12-05] MEDS ORDERED: Potassium Chlor 20 meq TAB.ER PO ONE (09:31)
[2021-12-05] MEDS: Vancomycin 750 MG in NS 0.9% 250 ML IVPB SCH ×2 (10:28→22:51)
[2021-12-05] MEDS: Enoxaparin 40 MG/0.4 ML SYR SUBCUT SCH (17:31)
[2021-12-06] MEDS: Acetaminophen IV 1 GM/100ML 100 ML IV SCH ×4 (04:29→23:42)
[2021-12-06 07:41] LABS: Calcium 8.7 mg/dL (8.6-10.3); Magnesium 1.6 mg/dL (1.9-2.7); Potassium 3.9 mmol/L (3.5-5.0)
[2021-12-06 07:46] LABS: eGFR CKD-EPI 90.6 (>60)
[2021-12-06] MEDS ORDERED: Magnesium Sulfate 2 gm BAG 2 GM/50 ML BAG IVPB ONE (08:12)
[2021-12-06] MEDS: Nicotine PATCH 14 MG/24 HR PATCH TRANSDERM SCH (09:51)
[2021-12-06] MEDS: Magnesium Hydroxide LIQ 30 ML UDC PO PRN (09:52)
[2021-12-06] MEDS: Vancomycin 750 MG in NS 0.9% 250 ML IVPB SCH (11:30)
[2021-12-06] MEDS: Enoxaparin 40 MG/0.4 ML SYR SUBCUT SCH (17:18)
[2021-12-07] MEDS: Vancomycin 750 MG in NS 0.9% 250 ML IVPB SCH ×2 (00:26→10:22)
[2021-12-07] MEDS: Acetaminophen IV 1 GM/100ML 100 ML IV SCH ×2 (05:46→10:23)
[2021-12-07] MEDS: Nicotine PATCH 14 MG/24 HR PATCH TRANSDERM SCH (10:22)
[2021-12-07 10:58] LABS: Rapid COVID-19 Molecular Undetected (Undetected)
[2021-12-07 11:50] VITALS: BP 131/59
== END 2021-12-07 13:50 | DRG 857 ==
LOC: ED 15:32 → EDHOLD 20:09 → SUATTDRO 20:09 → SSU 22:25
PROVIDERS: ADMIT Internal Medicine; ATTEND Student in an Organized Health Care Education/Training Program

== ENCOUNTER 2024-06-07 03:44 | Inpatient (IN) ==
[2024-06-07] MEDS: Ondansetron 4 mg VIAL 2 MG/ML 2 ml VIAL IV ONE (06:34)
[2024-06-07] MEDS: Lactated Ringers 1000 ml BAG 1,000 ML IV ONE ×2 (06:34→07:31)
[2024-06-07 06:42] LABS: ABS Basophils 0.1 10^3/uL (0.0-0.1); ABS Eosinophils 0.4 10^3/uL (0.0-0.5); ABS Monocytes 0.9 10^3/uL (0.0-0.9); ABS Neutrophils 5.1 10^3/uL (1.5-7.6); ABS Nucleated RBC 0.01 10^3/ul; Hematocrit 37.2 % (35-45); Hemoglobin 12.7 g/dL (11.5-14.3); Lymphocyte % 31.9 %; Mean Corpuscular Hemoglobin 31.9 pg (27-33); Mean Corpuscular Hgb Conc 34.3 g/dL (31-36); Mean Corpuscular Volume 92.9 fL (80-97); Mean Platelet Volume 10.1 fL (7.5-11.2); Nucleated Red Blood Cells % 0.1 %/100WBC (0.0-0.8); Platelet Count 248 10^3/uL (150-450); Red Cell Distribution Width 13.9 % (12-17); White Blood Count 9.5 10^3/uL (3.8-11.8)
[2024-06-07 06:50] LABS: Albumin 4.3 g/dL (3.2-5.2); Albumin/Globulin Ratio 1.6 (1-3); C Reactive Protein 72.68 mg/L (<8.01); Calcium 10.5 mg/dL (8.6-10.3); Creatinine, Serum 1.08 mg/dL (0.51-0.95); Globulin 2.7 g/dL (2-4); Magnesium 1.6 mg/dL (1.9-2.7); Potassium 3.8 mmol/L (3.5-5.0); Total Bilirubin 0.3 mg/dL (0.2-1.0)
[2024-06-07 06:57] LABS: Activated Partial Thrombo Time 31.9 seconds (26.0-38.0); INR 0.93 (0.85-1.14)
[2024-06-07] MEDS: Magnesium Sulfate 2 gm BAG 2 GM/50 ML BAG IVPB ONE (07:38)
[2024-06-07] MEDS: Iodixanol (CONTRAST) 320 MG/ML 100 ML SDV IV ONE (09:23)
[2024-06-07 09:51] LABS: Urine Appearance Clear; Urine Bilirubin Negative (Negative); Urine Blood Negative (Negative); Urine Color Light-Yellow; Urine Glucose Negative (Negative); Urine Ketones Negative (Negative); Urine Nitrite Negative (Negative); Urine Protein Negative (Negative); Urine Specific Gravity 1.026 (1.002-1.030); Urine Urobilinogen Negative (Negative)
[2024-06-07] MEDS: metroNIDAZOLE IV 500 MG/100ML 500 MG/100 ML BAG IVPB ONE (10:18)
[2024-06-07] MEDS: Ciprofloxacin 400mg IVPREMIX 400 MG/200 ML BAG IVPB ONE (11:41)
[2024-06-07] MEDS: Morphine 2 MG/ML SYRINGE IV ONE (17:10)
[2024-06-07 18:21] LABS: ALT 10 U/L (7-52); Albumin 3.4 g/dL (3.2-5.2); Albumin/Globulin Ratio 1.7 (1-3); Alkaline Phosphatase 65 U/L (35-149); Blood Urea Nitrogen 24 mg/dL (6-24); CO2 Carbon Dioxide 25 mmol/L (22-32); Calcium 8.7 mg/dL (8.6-10.3); Chloride 107 mmol/L (101-111); Creatinine, Serum 0.82 mg/dL (0.51-0.95); Glucose 96 mg/dL (70-100); Lipase 57 U/L (11.0-82.0); Sodium 141 mmol/L (135-145); Total Bilirubin 0.3 mg/dL (0.2-1.0); Total Protein 5.4 g/dL (6.4-8.9); eGFR CKD-EPI 77.9 (>60)
[2024-06-07 18:22] LABS: Anion Gap 9 mmol/L (2-16)
[2024-06-07] MEDS: Morphine 4 MG/ML VIAL (1 ml) IV ONE (19:56)
[2024-06-07] MEDS ORDERED: Lorazepam PYXIS KEY PRN (22:03)
[2024-06-07] MEDS: LORazepam 2 mg VIAL 1 ml IV PUSH ONE (22:13)
[2024-06-08] MEDS: Acetaminophen IV 1 GM/100ML 1,000 MG/100 ML BAG IV SCH (05:50)
[2024-06-08] MEDS: Lactated Ringers 1000 ml BAG 1,000 ML IV SCH (06:18)
[2024-06-08] MEDS: Morphine 4 MG/ML VIAL (1 ml) IV PRN (06:29)
[2024-06-08 08:24] LABS: ABS Eosinophils 0.3 10^3/uL (0.0-0.5); ABS Lymphocytes 1.3 10^3/uL (1.0-4.8); ABS Monocytes 0.6 10^3/uL (0.0-0.9); ABS Neutrophils 3.4 10^3/uL (1.5-7.6); Eosinophil % 5.4 %; Hemoglobin 10.5 g/dL (11.5-14.3); Mean Corpuscular Hgb Conc 32.8 g/dL (31-36); Mean Corpuscular Volume 94.4 fL (80-97); Mean Platelet Volume 10.2 fL (7.5-11.2); Nucleated Red Blood Cells % 0.1 %/100WBC (0.0-0.8); Platelet Count 194 10^3/uL (150-450); Red Blood Count 3.39 10^6/uL (3.63-4.92); Red Cell Distribution Width 14.3 % (12-17); White Blood Count 5.7 10^3/uL (3.8-11.8)
[2024-06-08] MEDS: cefTRIAXone 1 gm/50 mL D5W 1 GM/50 ML BAG IV SCH (08:37)
[2024-06-08 08:39] LABS: Albumin 3.5 g/dL (3.2-5.2); Albumin/Globulin Ratio 1.8 (1-3); Calcium 8.7 mg/dL (8.6-10.3); Creatinine, Serum 0.79 mg/dL (0.51-0.95); Globulin 1.9 g/dL (2-4); Magnesium 1.6 mg/dL (1.9-2.7); Potassium 4.2 mmol/L (3.5-5.0); Total Bilirubin 0.4 mg/dL (0.2-1.0); Total Protein 5.4 g/dL (6.4-8.9); eGFR CKD-EPI 81.4 (>60)
[2024-06-08] MEDS ORDERED: DULoxetine DR 60 mg CAP PO SCH (09:00)
[2024-06-08] MEDS: metroNIDAZOLE IV 500 MG/100ML 500 MG/100 ML BAG IVPB SCH (09:40)
[2024-06-08] MEDS: Magnesium Sulf 4 GM/100 ML IV 4,000 MG/100 ML BAG IVPB ONE (10:35)
[2024-06-09] MEDS: cefTRIAXone 1 gm/50 mL D5W 1 GM/50 ML BAG IV SCH (05:30)
[2024-06-09] MEDS: metroNIDAZOLE IV 500 MG/100ML 500 MG/100 ML BAG IVPB SCH (06:16)
[2024-06-09 07:17] LABS: ABS Eosinophils 0.3 10^3/uL (0.0-0.5); ABS Lymphocytes 1.3 10^3/uL (1.0-4.8); ABS Monocytes 0.5 10^3/uL (0.0-0.9); ABS Neutrophils 3.8 10^3/uL (1.5-7.6); Eosinophil % 5.1 %; Hematocrit 31.5 % (35-45); Hemoglobin 10.6 g/dL (11.5-14.3); Lymphocyte % 22.5 %; Mean Corpuscular Hgb Conc 33.6 g/dL (31-36); Mean Corpuscular Volume 95.2 fL (80-97); Mean Platelet Volume 10.4 fL (7.5-11.2); Platelet Count 194 10^3/uL (150-450); Red Blood Count 3.31 10^6/uL (3.63-4.92)
[2024-06-09 07:37] LABS: Albumin 3.4 g/dL (3.2-5.2); Albumin/Globulin Ratio 1.8 (1-3); Calcium 8.4 mg/dL (8.6-10.3); Creatinine, Serum 0.77 mg/dL (0.51-0.95); Direct Bilirubin 0.1 mg/dL (0.03-0.18); Globulin 1.9 g/dL (2-4); Indirect Bilirubin 0.2 mg/dL (0.3-1.0); Magnesium 1.9 mg/dL (1.9-2.7); Total Bilirubin 0.3 mg/dL (0.2-1.0); Total Protein 5.3 g/dL (6.4-8.9)
[2024-06-09] MEDS: Ondansetron 4 mg VIAL 2 MG/ML 2 ml VIAL IV PRN (09:14)
[2024-06-09 16:53] LABS: Albumin 3.7 g/dL (3.2-5.2); Albumin/Globulin Ratio 1.9 (1-3); Indirect Bilirubin 0.3 mg/dL (0.3-1.0); Total Bilirubin 0.3 mg/dL (0.2-1.0); Total Protein 5.7 g/dL (6.4-8.9)
[2024-06-09 21:04] LABS: ABS Basophils 0.1 10^3/uL (0.0-0.1); ABS Eosinophils 0.3 10^3/uL (0.0-0.5); ABS Lymphocytes 1.5 10^3/uL (1.0-4.8); ABS Monocytes 0.5 10^3/uL (0.0-0.9); ABS Neutrophils 4.4 10^3/uL (1.5-7.6); Eosinophil % 4.4 %; Hematocrit 31.1 % (35-45); Hemoglobin 10.2 g/dL (11.5-14.3); Lymphocyte % 22.3 %; Mean Corpuscular Hemoglobin 31.2 pg (27-33); Mean Corpuscular Hgb Conc 32.9 g/dL (31-36); Mean Corpuscular Volume 94.8 fL (80-97); Mean Platelet Volume 9.9 fL (7.5-11.2); Platelet Count 214 10^3/uL (150-450); Red Blood Count 3.28 10^6/uL (3.63-4.92); White Blood Count 6.8 10^3/uL (3.8-11.8)
[2024-06-09 21:58] LABS: Albumin 3.5 g/dL (3.2-5.2); Albumin/Globulin Ratio 1.8 (1-3); C Reactive Protein 18.05 mg/L (<8.01); Calcium 8.8 mg/dL (8.6-10.3); Creatinine, Serum 1.07 mg/dL (0.51-0.95); Globulin 1.9 g/dL (2-4); Potassium 4.4 mmol/L (3.5-5.0); Total Bilirubin 0.2 mg/dL (0.2-1.0); Total Protein 5.4 g/dL (6.4-8.9); eGFR CKD-EPI 56.6 (>60)
[2024-06-10] MEDS: Magnesium Hydroxide LIQ 30 ML UDC PO PRN (06:27)
[2024-06-10 06:49] LABS: ABS Basophils 0.1 10^3/uL (0.0-0.1); ABS Eosinophils 0.3 10^3/uL (0.0-0.5); ABS Lymphocytes 1.3 10^3/uL (1.0-4.8); ABS Monocytes 0.7 10^3/uL (0.0-0.9); ABS Neutrophils 6.6 10^3/uL (1.5-7.6); Eosinophil % 3.6 %; Hematocrit 30.3 % (35-45); Hemoglobin 9.9 g/dL (11.5-14.3); Lymphocyte % 14.5 %; Mean Corpuscular Hemoglobin 31.1 pg (27-33); Mean Corpuscular Hgb Conc 32.7 g/dL (31-36); Mean Corpuscular Volume 95.1 fL (80-97); Mean Platelet Volume 10.3 fL (7.5-11.2); Platelet Count 209 10^3/uL (150-450); Red Blood Count 3.19 10^6/uL (3.63-4.92); Red Cell Distribution Width 13.8 % (12-17)
[2024-06-10 07:05] LABS: Albumin 3.3 g/dL (3.2-5.2); Albumin/Globulin Ratio 1.7 (1-3); Calcium 8.4 mg/dL (8.6-10.3); Creatinine, Serum 0.86 mg/dL (0.51-0.95); Globulin 1.9 g/dL (2-4); Indirect Bilirubin 0.2 mg/dL (0.3-1.0); Magnesium 1.4 mg/dL (1.9-2.7); Potassium 4.4 mmol/L (3.5-5.0); Total Bilirubin 0.2 mg/dL (0.2-1.0); Total Protein 5.2 g/dL (6.4-8.9); eGFR CKD-EPI 73.5 (>60)
[2024-06-11 05:47] LABS: ABS Eosinophils 0.3 10^3/uL (0.0-0.5); ABS Lymphocytes 1.2 10^3/uL (1.0-4.8); ABS Monocytes 0.7 10^3/uL (0.0-0.9); Eosinophil % 4.4 %; Hematocrit 31.7 % (35-45); Hemoglobin 10.4 g/dL (11.5-14.3); Lymphocyte % 16.5 %; Mean Corpuscular Hemoglobin 31.1 pg (27-33); Mean Corpuscular Hgb Conc 32.7 g/dL (31-36); Mean Platelet Volume 9.6 fL (7.5-11.2); Platelet Count 212 10^3/uL (150-450); Red Blood Count 3.34 10^6/uL (3.63-4.92); Red Cell Distribution Width 13.7 % (12-17); White Blood Count 7.4 10^3/uL (3.8-11.8)
[2024-06-11 06:19] LABS: Albumin 3.4 g/dL (3.2-5.2); Albumin/Globulin Ratio 1.6 (1-3); Calcium 8.8 mg/dL (8.6-10.3); Creatinine, Serum 0.76 mg/dL (0.51-0.95); Direct Bilirubin 0.1 mg/dL (0.03-0.18); Globulin 2.1 g/dL (2-4); Indirect Bilirubin 0.2 mg/dL (0.3-1.0); Magnesium 1.6 mg/dL (1.9-2.7); Potassium 5.3 mmol/L (3.5-5.0); Total Bilirubin 0.3 mg/dL (0.2-1.0); Total Protein 5.5 g/dL (6.4-8.9); eGFR CKD-EPI 85.3 (>60)
[2024-06-11] MEDS: Magnesium Sulf 4 GM/100 ML IV 4,000 MG/100 ML BAG IVPB ONE (08:43)
[2024-06-11] MEDS ORDERED: fentaNYL 250 mcg/5 ml 50 MCG/ML 5 ml VIAL (250 MCG) ONE ×2 (10:07→12:08)
[2024-06-11] MEDS ORDERED: Midazolam 2 mg/2 ml VIAL 1 mg/ml 2 ml VIAL (2 mg) ONE (10:07)
[2024-06-11] MEDS ORDERED: Propofol 10 MG/ML 20 ML BTL ONE (10:07)
[2024-06-11] MEDS ORDERED: Lidocaine 2% PF 5 ML VIAL ONE (10:07)
[2024-06-11] MEDS ORDERED: Ondansetron 4 mg VIAL 2 MG/ML 2 ml VIAL ONE (10:07)
[2024-06-11] MEDS ORDERED: Dexamethasone IV 4 MG/ML VIAL 1 ml VIAL ONE (10:07)
[2024-06-11] MEDS ORDERED: Rocuronium 50 mg VIAL 10 mg/ml 5 ml VIAL (50 mg) ONE (10:07)
[2024-06-11] MEDS ORDERED: HYDROmorphone 0.5 MG/0.5 ML SYRINGE ONE (12:08)
[2024-06-11] MEDS ORDERED: fentaNYL 100 mcg/2 ml 50 MCG/ML VIAL ONE (13:32)
[2024-06-11] MEDS ORDERED: Acetaminophen IV 1 GM/100ML 1,000 MG/100 ML BAG IV ONE (13:32)
[2024-06-11] MEDS ORDERED: HYDROmorphone 1 MG/1 ML SYRINGE IV PRN (13:33)
[2024-06-11] MEDS ORDERED: Ondansetron 4 mg VIAL 2 MG/ML 2 ml VIAL IV PRN (13:33)
[2024-06-11] MEDS ORDERED: Naloxone 0.4 mg VIAL 0.4 mg/ml 1 ml VIAL IV PRN (13:33)
[2024-06-11] MEDS: fentaNYL 100 mcg/2 ml 50 MCG/ML VIAL IV PRN (13:35)
[2024-06-11] MEDS: NS 0.9% 1000 ml BAG 1,000 ML IV SCH (15:05)
[2024-06-11 15:43] LABS: Calcium 8.8 mg/dL (8.6-10.3); Creatinine, Serum 0.74 mg/dL (0.51-0.95); Potassium 4.7 mmol/L (3.5-5.0); eGFR CKD-EPI 88.1 (>60)
[2024-06-12] MEDS: HYDROmorphone 1 MG/1 ML SYRINGE IV SLOW PU ONE (02:54)
[2024-06-12] MEDS: Acetaminophen IV 1 GM/100ML 1,000 MG/100 ML BAG IV ONE (03:16)
[2024-06-12] MEDS: Buffered Lidocaine 1% SYRIN 1 ml INTRADERM ONE (03:16)
[2024-06-12] MEDS: Scopolamine 1 mg/72hr PATCH TRANSDERM ONE (03:17)
[2024-06-12] MEDS: Lactated Ringers 1000 ml BAG 1,000 ML IV SCH (03:17)
[2024-06-12 06:22] LABS: ABS Lymphocytes 0.7 10^3/uL (1.0-4.8); ABS Monocytes 0.7 10^3/uL (0.0-0.9); ABS Neutrophils 10.3 10^3/uL (1.5-7.6); ABS Nucleated RBC 0.01 10^3/ul; Hematocrit 30.2 % (35-45); Hemoglobin 9.9 g/dL (11.5-14.3); Lymphocyte % 5.8 %; Mean Corpuscular Hgb Conc 32.8 g/dL (31-36); Mean Corpuscular Volume 94.4 fL (80-97); Mean Platelet Volume 10.3 fL (7.5-11.2); Nucleated Red Blood Cells % 0.1 %/100WBC (0.0-0.8); Platelet Count 236 10^3/uL (150-450); Red Cell Distribution Width 13.8 % (12-17); White Blood Count 11.7 10^3/uL (3.8-11.8)
[2024-06-12 07:01] LABS: Calcium 8.2 mg/dL (8.6-10.3); Creatinine, Serum 0.74 mg/dL (0.51-0.95); Potassium 4.6 mmol/L (3.5-5.0); eGFR CKD-EPI 88.1 (>60)
[2024-06-12 11:18] VITALS: BP 143/69
== END 2024-06-12 10:35 | disposition home or self-care (01) | DRG 418 ==
LOC: ED 03:44 → EDHOLD 03:44 → SUATTDRO 06-08 03:51 → MEDTELE 06-08 05:17
PROVIDERS: ADMIT Internal Medicine; ATTEND Hospitalist